=== PATIENT | male | born 1995 | race Hispanic/Latino ===

== ENCOUNTER 2022-02-24 13:47 | Emergency (ER) | payer OTHER ==
[~2022-02-24] VITALS: Ht 162.6 cm; Wt 76.2 kg
[2022-02-24 14:01] VITALS: BP 146/82
[2022-02-24 14:23] LABS: APPEARANCE,URINE CLEAR (CLEAR); BILIRUBIN,URINE NEGATIVE (NEGATIVE); COLOR,URINE LIGHT-YELLOW (YELLOW); GLUCOSE, URINE (UA) NEGATIVE (NEGATIVE); KETONES,URINE NEGATIVE (NEGATIVE); LEUKOCYTE ESTERASE ,URINE NEGATIVE Leu/uL (NEGATIVE); NITRATE,URINE NEGATIVE (NEGATIVE); OCCULT BLOOD,URINE NEGATIVE (NEGATIVE); PROTEIN,URINE NEGATIVE (NEGATIVE); UROBILINOGEN,URINE 0.2 mg/dL (0.2-1.0)
[2022-02-24] MEDS ORDERED: IBUPROFEN 600 MG TABLET PO ONE (15:00)
[2022-02-24] MEDS ORDERED: IBUP-2070 PO (15:00)
== END 2022-02-24 15:52 | disposition home or self-care (01) ==
LOC: EDH 13:47
DX: N48.89 Other specified disorders of penis (principal); Z79.1 Long term (current) use of non-steroidal anti-inflammatories (NSAID)
CPT/HCPCS: 81003; 87486; 87797

== ENCOUNTER 2024-10-29 20:04 | Emergency (ER) | payer BC ==
[~2024-10-29] VITALS: Ht 170.2 cm; Wt 83.9 kg
[~2024-10-29 20:04] MED LIST: IBUP-1492 PO
--- NOTE | 2024-10-29 20:36 | ERN ---
ED Note History of Present Illness Stated Complaint: F/O LEFT EYE, ONSET 2 WEEKS Chief Complaint: Eye Problems Time Seen by MD: 20:10 Dictation: PATIENT IS A 29-YEAR-OLD MALE STATES HE WAS USING HIS STAPLE LASTER LAST WEEK ON SOME METAL WITH JUST SUNGLASSES ON. STATES HE FELT A PEDAL MEDS 0 GO INTO HIS LEFT EYE. STATES HE HAS A ATTEMPTED TO BLANKET OUT, USE [id number] EYEDROPS WITHOUT SUCCESS. HE DOES NOT WEAR CONTACTS OR CORRECTIVE LENSES. STATES HE THOUGHT IT WOULD GET BETTER AND THEN WAITED UNTIL TONIGHT TO COME IN TO THE EMERGENCY ROOM. NO PRIMARY CARE DOCTOR BUT DENIES ANY VISUAL ACUITY CHANGES Allergies: Coded Allergies: No Known Allergies (Unverified Allergy, Unknown, 02/24/22) Home Meds Active Scripts Ibuprofen (Ibuprofen) 600 Mg Tablet, 600 MG PO Q6H PRN for PAIN for 5 Days, #20 TAB Prov:REBEKAH PEÑA 02/24/22 Past Medical History Past Medical History: No Pertinent History Surgical History: None RN Note Reviewed/Agreed w/PFSH: Yes Review of System Dictation CONSTITUTIONAL: NEGATIVE EXCEPT FOR HPI HEAD/FACE: NEGATIVE EXCEPT FOR HPI EENT: NEGATIVE EXCEPT FOR HPI FOREIGN BODY SENSATION LEFT EYE RESPIRATORY: NEGATIVE EXCEPT FOR HPI GASTROINTESTINAL/ABDOMINAL: NEGATIVE EXCEPT FOR HPI GENITOURINARY: NEGATIVE EXCEPT FOR HPI MUSCULOSKELETAL: NEGATIVE EXCEPT FOR HPI INTEGUMENTARY: NEGATIVE EXCEPT FOR HPI NEUROLOGICAL/PSYCH: NEGATIVE EXCEPT FOR HPI HEMATOLOGIC/LYMPHATIC: NEGATIVE EXCEPT FOR HPI ALL SYSTEMS NEGATIVE, EXCEPT NOTED ABOVE. 13 POINT REVIEW OF SYSTEMS ASSESSED AND ALL NEGATIVE EXCEPT FOR ABOVE. Initial Vital Sign VS Vital Signs Date Time Temp Pulse Resp B/P (MAP) Pulse Ox O2 Delivery O2 Flow Rate FiO2 10/29/24 20:05 97.9 63 20 121/68 98 Room Air Physical Exam Dictation VITAL SIGNS REVIEWED GENERAL APPEARANCE: ALERT, ORIENTED X 3, N MILD ACUTE DISTRESS, WELL DEVELOPED, NOURISHED. HEAD AND FACE: NON-TRAUMATIC. EYES: PERRL, LEFT SCLERA AND CONJUNCTIVA ARE INJECTED CONJUNCTIVAS, EYELID NO TRAUMA, ANTERIOR CHAMBER WITH ARCUS SENILIS. EOMS INTACT EARS: PINNAS INTACT AND NO SIGNS OF TRAUMA OR ERYTHEMA EAR CANALS CLEAR AND NO DISCHARGE TM NO ERYTHEMA NOSE: NO DISCHARGE, NO BLEEDING. OROPHARYNX: MOUTH NORMAL, TONGUE PINK, PHARYNX CLEAR,NO ERYTHEMA, TONSILS NO EXUDATES, NO ABSCESSES NOTED, MUCOUS MEMBRANE MOIST NECK: SUPPLE, NON-TENDER, NO THYROMEGALY, NO MASSES, NO JVD, NO BRUITS BREAST:DEFERRED CHEST:NO TENDERNESS, NO CREPITUS, NO PARADOXICAL MOVEMENT, NO RETRACTIONS LUNGS:CLEAR, WELL-VENTILATED, SYMMETRIC, NO RALES, NO WHEEZING, NO RHONCHI, NO STRIDOR, GOOD BREATH SOUNDS BILATERALLY HEART: REGULAR RATE, REGULAR RHYTHM, NO MURMUR, NO GALLOPS VASCULAR: NO PERIPHERAL EDEMA, ABDOMEN: SOFT, POSITIVE BOWEL SOUNDS, NONDISTENDED, NO GUARDING, NONTENDER, NO REBOUND, NO MASSES NO HEPATOMEGALY, NO SPLENOMEGALY, NO NORTON'S SIGN, NO HERNIAS. RECTAL: DEFERRED GENITAL: DEFERRED NEUROLOGICAL: NORMAL SPEECH, MOTOR FUNCTION INTACT, SENSORY FUNCTION INTACT MUSCULOSKELETAL: NECK NONTENDER, FULL RANGE OF MOTION, BACK NONTENDER, FULL RANGE OF MOTION, EXTREMITIES: NONTENDER, FULL RANGE OF MOTION SKIN: COLOR PINK, DRY, NO TURGOR, NO RASH, NO LACERATIONS, NO ABRASIONS, NO CONTUSIONS. LYMPHATIC: DEFERRED Results (Laboratory/Radiology) Labs Reviewed?: Yes ED Course ED Course Orders Procedure Category Date Status Time Ibuprofen 800 Mg Tab PHA 10/29/24 In Process (Motrin) 21:00 Tetracaine Hcl PHA 10/29/24 In Process (Pontocaine 0.5% 21:00 Fluorescein Sodium PHA 10/29/24 In Process (Cxdmu-Z-Lsjlv At) 21:00 Visual Acuity Test CPOE 10/29/24 Transmitted (Er) 20:33 Erythrocin 0.5% Ophth PHA 10/29/24 Verified Oint (Erythrocin 0 21:50 Current Medications Medications (Trade) Dose Ordered Sig/Angel Route PRN Reason Start Time Stop Time Status Last Admin Dose Admin Fluorescein Sodium (Dydac-P-Alldj At) 1 strip ONCE OP 10/29/24 21:00 10/30/24 06:00 Ibuprofen (moTRIN) 800 mg ONCE PO 10/29/24 21:00 10/30/24 06:00 Tetracaine HCl (Pontocaine 0.5% Ophth Soln) 2 drop ONCE OP 10/29/24 21:00 10/30/24 06:00 Vital Signs Date Time Temp Pulse Resp B/P (MAP) Pulse Ox O2 Delivery O2 Flow Rate FiO2 10/29/24 20:05 97.9 63 20 121/68 98 Room Air 2150/PATIENT HAD LEFT EYE EXAM WITH FLUORESCEIN STAIN AND WOOD'S LAMP PATIENT WAS STRONGLY ADVISED TO START WEARING FULL COVERAGE GOGGLES WITH ANY OUTSIDE ACTIVITIES TO INCLUDE GRINDING ON WORKING WITH [employer]. I REFERRED HIM TO [facility] TOMORROW WITHOUT FAIL FOR MANAGEMENT. Medical Decision Making MDM MEDICAL DECISION-MAKING WAS BASED ON EXAMINED OF LEFT EYE TO INCLUDE F LUORESCEIN/EVERSION OF THE UPPER LIDS/BLACK LAMP. VISUAL ACUITY WAS EVALUATED BY RN ERYTHROMYCIN OPHTHALMIC OINTMENT HALF-INCH RIBBON PLACED TO LEFT EYE BEFORE DISCHARGE PATIENT WAS EDUCATED ON PROPER EYE PROTECTION WHEN WORKING WITH [employer] STRONGLY ADVISED TO FOLLOW UP WITH [facility] TOMORROW WITHOUT FAIL FOR MANAGEMENT Procedure Procedure Dictation: 2144/PROCEDURE EXPLAINED TO PATIENT HE AGREED TO PROCEED TWO DROPS TETRACAINE TO LEFT EYE FLUORESCEIN TO LEFT EYE LEFT EYE WAS EXAMINED WITH WOOD'S LAMP TO INCLUDE EVERSION OF THE UPPER LID PATIENT HAS A SMALL CORNEAL ABRASION AT 04:00 EYE WAS RINSED I WE WILL MEDICATE PATIENT WITH ERYTHROMYCIN OPHTHALMIC PRIOR TO DISCHARGE I REFERRED HIM TO [facility] TOMORROW. DX & DISP Disposition: Discharge Departure Impression: Primary Impression: Corneal abrasion, left Condition: Stable Scripts Erythromycin Base (Erythromycin) 5 Mg/Gram (0.5 %) Oint...g. 1 GM OP AD for 7 Days, #5 GM HALF-INCH RIBBON TO LEFT EYE EVERY 4 HOURS WHILE AWAKE FOR THE NEXT SEVEN DAYS. Prov: JESUS LUNDBERG NP 10/29/24 Ibuprofen (Ibuprofen 800 mg Tab) 800 Mg Tab 800 MG PO Q8H PRN for fever or pain, #30 TAB 0 Refills Prov: JESUS LUNDBERG NP 10/29/24 Additional Instructions: FOLLOW-UP WITH PRIMARY CARE PROVIDER IN 1 TO 2 DAYS. TAKE MEDICATIONS D IRECTED HERE IN THE EMERGENCY ROOM. OKAY TO CONTINUE HOME MEDICATIONS UNLESS OTHERWISE DISCUSSED DURING YOUR VISIT IN THE EMERGENCY ROOM TODAY. RETURN TO YOUR NEAREST EMERGENCY ROOM IF SYMPTOMS WORSEN OR IF THERE IS NO IMPROVEMENT. CALL 911 IF YOU NEED IMMEDIATE ASSISTANCE. TAKE TYLENOL OR MOTRIN [id number] NEEDED AND IF NO CONTRAINDICATIONS ARE PRESENT. INCREASE ORAL HYDRATION. A WOUND CULTURE OR URINE CULTURE WAS ORDERED HERE IN THE EMERGENCY ROOM DEPARTMENT PLEASE FOLLOW-UP WITH PRIMARY CARE PROVIDER AND ADVISE THEM TO GET REPEAT PORTS FROM OUR FACILITY. IF YOU HAD ANY BEN WRAP/SPLINTS THAT WERE APPLIED HERE, PLEASE DO NOT REMOVE THEM UNTIL YOU SEE YOUR PRIMARY CARE OR SPECIALTY. USE ERYTHROMYCIN OPHTHALMIC ANTIBIOTIC OINTMENT DIRECTED EVERY 4 HOURS WHILE AWAKE FOR THE NEXT SEVEN DAYS. FOLLOW UP WITH [facility], LOOKING THE [email or web address] TELEPHONE NUMBER IN [facility] TOMORROW. STRONGLY SUGGEST WEARING PROTECTIVE GOGGLES WITH THE ANY OUTSIDE ACTIVITY, WORKING WITH [employer] ETC.. Referrals: SELF,REFERRAL (PCP) Time of Disposition: 21:55 I have reviewed the case, and I agree with, Diagnosis and Plan J[facility]US LUNDBERG [facility] Oct 29, 2024 20:36
[2024-10-29] MEDS ORDERED: IBUP-2077 PO (21:57)
[2024-10-29] MEDS ORDERED: ERYT1OIN7 OP (21:57)
[2024-10-29 22:23] VITALS: BP 121/68; PULSE 63; RESP 20; TEMP 97.5; O2SAT 98
[2024-10-29] MEDS: ERYTHROMYCIN BASE 0.5% OPHTH OINT 1 GM TUBE OS STA (22:29)
[2024-10-29] MEDS: FLUORESCEIN SODIUM 1 STRIP STRIP OP SCH (22:29)
[2024-10-29] MEDS: TETRACAINE HCL 0.5% 4 ML OPHTH SOLN OP SCH (22:29)
== END 2024-10-29 22:33 | disposition home or self-care (01) ==
LOC: EDH 20:04
DX: S05.02XA Injury of conjunctiva and corneal abrasion without foreign body, left eye, initial encounter (principal); X58.XXXA Exposure to other specified factors, initial encounter; Y93.89 Activity, other specified; Y92.89 Other specified places as the place of occurrence of the external cause; Y99.8 Other external cause status
CPT/HCPCS: 99283